=== PATIENT | male | born 1940 | race Caucasian/White ===

== ENCOUNTER 2022-11-11 20:48 | Emergency (ER) | payer OTHER, MEDICAID ==
[~2022-11-11] VITALS: Ht 170.2 cm; Wt 81.6 kg
[2022-11-11 21:10] VITALS: BP_SYST 151
[2022-11-11] MEDS ORDERED: KETOROLAC TROMETHAMINE 30 MG VIAL IVP ONE (21:15)
[2022-11-11] MEDS ORDERED: NACL 0.9% 1,000 ML IV ONE (21:15)
--- NOTE | 2022-11-11 21:20 | NUR ---
First contact. Pt placed on monitor and placed in gown.
[2022-11-11 21:40] LABS: BILIRUBIN,URINE NEGATIVE (NEGATIVE); BLOOD, URINE NEGATIVE (NEGATIVE); CLARITY/URINE CLEAR (CLEAR); COLOR,URINE YELLOW (YELLOW); GLUCOSE,URINE 2+ (NEGATIVE); KETONES,URINE NEGATIVE (NEGATIVE); LEUKOCYTE ESTERASE ,URINE NEGATIVE (NEGATIVE); NITRITE, URINE NEGATIVE (NEGATIVE); PROTEIN URINE TRACE (NEGATIVE); UROBILINOGEN,URINE 0.2 (0.2-1.0)
[2022-11-11] MEDS ORDERED: ZOLP10TA2 PO (21:44)
[2022-11-11] MEDS ORDERED: ROSU20TA2 PO (21:44)
[2022-11-11] MEDS ORDERED: ASPI-1393 PO (21:45)
[2022-11-11] MEDS ORDERED: ACET500P25 PO (21:46)
[2022-11-11 21:51] LABS: BACTERIA,URINE None Seen /HPF (None Seen); MUCUS,URINE 1+ /LPF (None Seen); RBC,URINE 0-3 /HPF (0-3); WBC,URINE 0-3 /HPF (0-3)
[2022-11-11 22:17] LABS: BASOPHILS # (AUTO) 0.1 K/uL (0.0-0.2); BASOPHILS % (AUTO) 1.2 % (0.0-2.0); EOSINOPHILS # (AUTO) 0.3 K/uL (0.0-0.4); EOSINOPHILS % (AUTO) 3.5 % (0.0-4.0); HEMATOCRIT 39.1 % (36-54); HEMOGLOBIN 12.9 g/dL (14.0-18.0); LYMPHOCYTES # (AUTO) 1.9 K/uL (1.0-5.5); LYMPHOCYTES % (AUTO) 22.7 % (20.5-51.5); MEAN CORPUSCULAR HEMOGLOBIN 27 pg (27-31); MEAN CORPUSCULAR HGB CONC 33 % (32-36); MEAN CORPUSCULAR VOLUME 84 fL (79.0-98.0); MONOCYTES # (AUTO) 0.8 K/uL (0.0-1.0); MONOCYTES % (AUTO) 9.9 % (1.7-9.3); NEUTROPHILS # (AUTO) 5.4 K/uL (1.8-7.7); NEUTROPHILS % (AUTO) 62.7 % (40.0-70.0); PLATELET COUNT (AUTO) 171 K/uL (130-430); RED BLOOD CELL COUNT(AUTO) 4.69 MIL/uL (4.2-6.2); RED CELL DISTRIBUTION WIDTH 15.6 % (9.0-15.0); WHITE BLOOD COUNT (AUTO) 8.5 K/uL (4.8-10.8)
[2022-11-11 22:27] LABS: ANION GAP 8 (5-15); CALCIUM 8.9 mg/dL (8.4-11.0); CHLORIDE 103 mmol/L (98-107); CREATININE 1.84 mg/dL (0.55-1.30); GLUCOSE 121 mg/dL (70-99); UREA NITROGEN, BLOOD 39 mg/dL (8-21)
[2022-11-11 22:32] LABS: ALANINE AMINOTRANSFERASE 24 U/L (12-78); ALBUMIN 3.5 g/dL (3.4-4.8); ASPARTATE AMINOTRANSFERASE 15 U/L (10-37); TOTAL BILIRUBIN 0.3 mg/dL (0.0-1.0)
[2022-11-11] MEDS ORDERED: POLY119P2 PO (23:01)
[2022-11-11] MEDS ORDERED: ACET-2634 PO (23:01)
[2022-11-11] MEDS ORDERED: SENN-298 PO (23:01)
--- NOTE | 2022-11-12 00:15 | NUR ---
Patient given written and verbal discharge instructions and verbalizes understanding. Also, report given to LAILA Turner MD discussed with patient the results and treatment provided. Patient in stable condition. ID arm band removed. IV catheter removed intact and dressing applied, no active bleeding.Rx of Acetaminophen xtra str, polyethylene glycol 3350, and Sennosides/docusate sodium given. Patient educated on pain management and to follow up with PMD. Opportunity for questions provided and answered.
[2022-11-12 00:30] VITALS: BP_SYST 127
--- NOTE | 2022-11-12 00:45 | NUR ---
Pt physically left building at this time. Facililty sent uber to pick patient up.
== END 2022-11-12 00:15 | disposition home or self-care (01) ==
LOC: SED 20:48
DX: K59.00 Constipation, unspecified (principal); R10.32 Left lower quadrant pain; R10.11 Right upper quadrant pain; E11.9 Type 2 diabetes mellitus without complications; I10 Essential (primary) hypertension; Z88.2 Allergy status to sulfonamides; Z88.7 Allergy status to serum and vaccine; Z79.899 Other long term (current) drug therapy
CPT/HCPCS: 99285; 74176; 96374; 96361; 80053; 81000; 85025; 87040; 36415; 76376; 83605; J1885; J7030

== ENCOUNTER 2023-04-01 05:28 | Emergency (ER) | payer MEDICAID, OTHER ==
[~2023-04-01] VITALS: Ht 170.2 cm; Wt 81.6 kg
[~2023-04-01 05:28] MED LIST: ACET-2634 PO; ACET500P25 PO; ASPI-1393 PO; POLY119P2 PO; ROSU20TA2 PO; SENN-298 PO; ZOLP10TA2 PO
--- NOTE | 2023-04-01 05:41 | NUR ---
PATIENT BROUGHT IN BY BLS UNIT FROM [facility] FOR AN UNWITNESSED FALL OUT OF WHEELCHAIR, PATIENT IS A&O X3, DENIES HITTING HEAD, COMPLAINTS OF LOWER BACK PAIN, HISTORY OF CHRONIC BACK PAIN
[2023-04-01 05:45] VITALS: BP_SYST 124; PULSE 57; RESP 17; TEMP 96.9; O2SAT 98
--- NOTE | 2023-04-01 05:45 | NUR ---
PATIENT PLACED IN ED BED 8, REPORT GIVEN TO [place] [facility]
--- NOTE | 2023-04-01 05:48 | NUR ---
PT BLOOD SUGAR OF 45. PT GIVEN 2, 4 oz APPLE JUICES. PT EDUCATED ON NEED FOR ORAL GLUCOSE AND IV. AWAITING ORDERS.
--- NOTE | 2023-04-01 05:49 | NUR ---
PT BIB EMS C/O LOWER BACK PAIN. PT STATES HE WAS SITTING IN HIS WHEEL CHAIR WHEN HE SLIPPED DOWN AND HURT HIS LOWER RIGHT SIDED BACK. PT DENIES ANY HEAD TRAUMA AND STATES HE ONLY HURT HIS LOWER RIGHT SIDED BACK. PT HAS HX OF DM, HTN, AND LEFT LOWER LEG AMPUTATION 5 YEARS AGO. PT IS COMPLAING OF 8 OUT OF 10 PAIN. PT IS EYES OPEN SPONTANEOUSLY. PT IS ALERT AND ORIENTED TO PERSON, PLACE, TIME, AND SITUATION. PT OBEYS COMMANDS. PT IS HARD OF HEARING. PT DENIES VISUAL PROBLEMS. PT DENIES SOB AND CHEST PAIN. PT DENIES N/V/D. PT SKIN IS WARM AND INTACT NO CONTUSIONS OR BRUSING NOTED TO LOWER BACK. PT IS IN ROOM 8 ON THE MONITOR PLAN OF CARE CONTINUES.
--- NOTE | 2023-04-01 06:03 | NUR ---
PT NEW BLOOD GLUCOSE 60 MADE AWARE. ORDERED TO GIVE PT A BREAKFEAST MEAL. PT IN ROOM 8 EATING BREAKFEAST
--- NOTE | 2023-04-01 07:01 | NUR ---
PT NEW BS 113 DR. DUTTON MADE AWARE Q1 BS CHECKS
--- NOTE | 2023-04-01 07:10 | NUR ---
report given to jeancarlos santo. chance for questions provided.
--- NOTE | 2023-04-01 07:25 | NUR ---
Patient noted resting in bed. Assisted into position of comfort using 2 staff. No signs of acute distress noted. No c/o pain at this time.
[2023-04-01 08:09] LABS: ANION GAP 11 (5-15); BASOPHILS # (AUTO) 0.1 K/uL (0.0-0.2); BASOPHILS % (AUTO) 0.5 % (0.0-2.0); CALCIUM 8.9 mg/dL (8.4-11.0); CHLORIDE 91 mmol/L (98-107); EOSINOPHILS # (AUTO) 0.2 K/uL (0.0-0.4); GLUCOSE 52 mg/dL (74-106); HEMATOCRIT 40.4 % (36-54); HEMOGLOBIN 13.2 g/dL (14.0-18.0); LYMPHOCYTES # (AUTO) 1.4 K/uL (1.0-5.5); LYMPHOCYTES % (AUTO) 12.3 % (20.5-51.5); MEAN CORPUSCULAR HEMOGLOBIN 28 pg (27-31); MEAN CORPUSCULAR HGB CONC 33 % (32-36); MEAN CORPUSCULAR VOLUME 85 fL (79.0-98.0); NEUTROPHILS # (AUTO) 8.4 K/uL (1.8-7.7); NEUTROPHILS % (AUTO) 76.2 % (40.0-70.0); PLATELET COUNT (AUTO) 196 K/uL (130-430); RED BLOOD CELL COUNT(AUTO) 4.78 MIL/uL (4.2-6.2); RED CELL DISTRIBUTION WIDTH 15.9 % (9.0-15.0); UREA NITROGEN, BLOOD 39 mg/dL (8-21)
[2023-04-01 08:15] LABS: ALANINE AMINOTRANSFERASE 22 U/L (12-78); ALBUMIN 3.9 g/dL (3.4-4.8); ASPARTATE AMINOTRANSFERASE 24 U/L (10-37); TOTAL BILIRUBIN 0.7 mg/dL (0.0-1.0)
--- NOTE | 2023-04-01 09:13 | NUR ---
Patient fingerstick accucheck 153. made aware.
--- NOTE | 2023-04-01 10:25 | NUR ---
Spoke to Chidi at [facility] where Patient resides to give report & request pickup of Patient. Chidi states that Patient manages his own medications & has been found on the floor x3 in one week. Chidi stated that he believes Patient over medicated using his Tramadol & Ambien & did not seem to know that Patient blood sugar on scene was 50 & was revived by Paramedics administering Dextrose. While discussing hypoglycemia information & discussing possibility of the need for facility to take over medication management, Chidi stated that the facility manages Patient's accuchecks and insulin admin & only check it twice daily. Chidi states he will call back with a pickup time.
--- NOTE | 2023-04-01 11:20 | NUR ---
Patient given written and verbal discharge instructions and verbalizes understanding. ER MD DUTTON discussed with patient the results and treatment provided. Patient in stable condition. ID arm band removed. IV catheter removed intact and dressing applied, no active bleeding. Rx of given. Patient educated on pain management and to follow up with PMD. Pain Scale 2/10. Opportunity for questions provided and answered. Medication side effect fact sheet provided.
[2023-04-01 11:23] VITALS: BP_SYST 134; PULSE 60; RESP 18; TEMP 97.5; O2SAT 95
== END 2023-04-01 10:20 | disposition home or self-care (01) ==
LOC: SED 05:28
DX: E11.649 Type 2 diabetes mellitus with hypoglycemia without coma (principal); T38.3X5A Adverse effect of insulin and oral hypoglycemic [antidiabetic] drugs, initial encounter; Y92.89 Other specified places as the place of occurrence of the external cause; R41.82 Altered mental status, unspecified; I10 Essential (primary) hypertension; Z88.2 Allergy status to sulfonamides; Z88.7 Allergy status to serum and vaccine; Z79.899 Other long term (current) drug therapy
CPT/HCPCS: 36415; 71045; 80053; 82550; 84484; 85025; 99285